=== PATIENT | female | born 1960 | race Caucasian/White ===

== ENCOUNTER → 2019-10-31 | Outpatient (CLI) | payer SELFPAY ==
--- NOTE | 2019-10-31 16:32 | PCVCIMAG ---
APPROVED REPORT Study performed: 10/31/2019 15:00:19 Exam: Stress Echocardiogram Indication: Hyperlipidemia, Hypertension, elevated coronary calcium score Patient Location: Echo lab Stress Nurse: Lady Shay RN Room #: 2 Status: routine Ht: 4 ft 8 in HR: 68 bpm BP: 142/86 mmHg Rhythm: NSR Medical History Medical History: HTN, , Hyperlipidemia Cardiac Risk Factors: elev cor ca+ Previous Cardiac Procedures: none Pretest Chest Pain Characteristics: No chest pain Exercise History: Physically active Procedure The patient underwent an Exercise Stress Test using the Remigio Protocol. Blood pressure, heart rate, and EKG were monitored. An Echocardiogram was performed by astro technician in four stages in quad fashion. At peak stress, four selected images were obtained and placed side by side with resting images for comparison. Stress Test Details Stress Test: Exercise stress testing was performed using a Remigio protocol. HR Resting HR: 68 bpmMax Heart Rate (APMHR): 160 bpm Max HR Achieved: 169 bpmTarget HR (85% APMHR): 136 bpm % of APMHR: 105 Recovery HR: 99 bpm HR response to stress: Normal HR response to stress BP Resting BP: 142/86 mmHg Max BP: 188/80 mmHg Recovery BP: 162/78 mmHg BP response to stress: Normal blood pressure response to stress. ECG Resting ECG: Sinus Rhythm Stress ECG: Sinus Rhythm, NSSTT changes ST Change: Non-ischemic Maximum ST Deviation: -0.60 mm Arrhythmia: rare PVC, one couplet Recovery ECG: Sinus Rhythm Recovery ST Change: Non-ischemic Recovery ST Deviation: -0.30 mm Recovery Arrhythmia: None Clinical Reason for Termination: Maximal effort Stress Symptoms: fatigue Exercise duration: 9 min 13 sec Highest Stage Achieved: Stage 4: 4.2 mph at 16% grade. Exercise capacity: 10.7 METs Overall Exercise Capacity for Age: Good Scale: Active Angina Score: None No complications. Stress ECG Conclusion Dobbins Treadmill Score is 12.0 which is Low risk. Pre-Stress Echo The resting Echocardiogram showed normal left ventricular contractility with an estimated Ejection Fraction of about 55-60%. Normal wall motion in all segments on baseline images. Post-Stress Echo The stress Echocardiogram showed normal left ventricular contractility with an estimated Ejection Fraction of about 65-70%. Normal augmentation of wall motion in all segments on post stress images. Clinical No clinical or ECG evidence for ischemia. Conclusion Clinical Response: Non-ischemic Exercise Capacity: Superior Stress ECG Response: Non-ischemic Stress Echo Images: Non-ischemic No clinical, EKG or echocardiographic evidence for ischemia. No echocardiographic evidence for exercise induced ischemia. Normal stress echocardiogram with maximal exercise stress. Normal color doppler. No stenosis or regurgitation seen in the mitral, aortic,tricuspid or pulmonic valves. <Conclusion> No clinical, EKG or echocardiographic evidence for ischemia. No echocardiographic evidence for exercise induced ischemia. Normal stress echocardiogram with maximal exercise stress. Normal color doppler. No stenosis or regurgitation seen in the mitral, aortic,tricuspid or pulmonic valves.
== END | disposition home or self-care (01) ==
LOC: PCVCIMAG 14:23
PROVIDERS: ATTEND Internal Medicine Cardiovascular Disease
DX: R93.1 Abnormal findings on diagnostic imaging of heart and coronary circulation (principal); I10 Essential (primary) hypertension; E78.5 Hyperlipidemia, unspecified
CPT/HCPCS: 93325; 93351